=== PATIENT | male | born 1960 | race Caucasian/White ===

== ENCOUNTER → 2016-08-30 | Emergency (ER) | payer BC ==
[~2016-08-30] VITALS: Ht 177.8 cm; Wt 65.8 kg
[~2016-08-30] MED LIST: CATHETER FLUSH 10 ML SYR IV PRN; IOHEXOL 350 MG/ML 100 ML (OMNIPAQUE 350) VIAL IV ONE; NS 100 ML (IVPB) BAG IV ONE; NS IV 1000 ML 1,000 ML IV ONE
--- NOTE | 2016-08-30 09:44 | ED Abdominal Pain ---
General Chief Complaint: Abdominal/GI Problems Stated Complaint: ABD/BACK PAIN/DIARRHEA LIGHTHEADED WEAKNESS Nursing Triage Note: AMB TO ED REPORTS THAT HE HAS HAD ABD PAIN THAT STARTED 4-5 WEEKS STARTED ON R AND MOVES TO R AND L AND BACK. NO VOMITNG. STARTED WITH DIARREA ON TUE. CON'T TO BE ABLE TO EAT AND DRINK. WAS STARTED ON AMOXIL LAST WEEK FOR POSSIBLE STREP. FINISHED YESTERDAY. TODAY TOOK PILL FOR DIARRHEA. DID NOT EAT BREAKFAST. WHILE AT WORK STARTED FEELING LIGHT HEADED. ATE BANANA FEELING BETTER NOW. Sepsis Screen: No Definite Risk Source of Information: Patient Exam Limitations: No Limitations History of Present Illness Time Seen By Provider: 09:27 Initial Comments Here with complaint of 4-5 weeks of intermittent abdominal pain and low back pain. States started on the right side and then moved to the left. It has had various areas along the abdominal wall and low back in that timeframe. Started on Amoxil last week for tonsil problems. He has had loose stools over the last 2 days. He took Imodium yesterday and was a little dizzy afterwards but that cleared with eating. He took it again today and was dizzy afterwards but did not get better after eating. He is a little better now. He is set up for colonoscopy with Dr. Chavira in a week or 2. Denies blood in his stool. Denies dysuria. Denies vomiting. Timing/Duration: 1-3 Hours, Changing Over Time Severity/Quality: Other (loose stools and weakness) Location: Generalized Abdomen Radiation: Back (he is getting swollen sure the) Activities at Onset: None Associated Symptoms: No Back Pain, No Chest Pain, No Fever/Chills, No Nausea/ Vomiting, Weakness Allergies and Home Medications Allergies Coded Allergies: No Known Drug Allergies (Unverified , 01/21/16) Home Medications No Active Prescriptions or Reported Meds Review of Systems Constitutional: see HPI, No chills, No fever EENTM: No Symptoms Reported Respiratory: No Symptoms Reported Cardiovascular: No Symptoms Reported Gastrointestinal: See HPI, Abdominal Pain, Diarrhea, Denies Nausea, Denies Vomiting Genitourinary: No Symptoms Reported Musculoskeletal: see HPI, back pain, No muscle pain Skin: no symptoms reported Psychiatric/Neurological: No Symptoms Reported All Other Systems Reviewed Negative Unless Noted: Yes Past Xntaddj-Kaaczs-Iffmyf Hx Patient Social History Alcohol Use: Occasionally Uses Recreational Drug Use: No Smoking Status: Never a Smoker Recent Foreign Travel: No Contact w/Someone Who Travel: No Recent Infectious Disease Expo: No Recent Hopitalizations: No Immunizations Up To Date Tetanus Booster (TDap): Less than 5yrs PED Vaccines UTD: No Seasonal Allergies Seasonal Allergies: Yes Surgeries HX Surgeries: Yes Surgeries: Cystectomy, Ear Surgery Respiratory Hx Respiratory Disorders: No Cardiovascular Hx Cardiac Disorders: No Neurological Hx Neurological Disorders: No Reproductive System Hx Reproductive Disorders: No Genitourinary Hx Genitourinary Disorders: No Gastrointestinal Hx Gastrointestinal Disorders: No Musculoskeletal Hx Musculoskeletal Disorders: No Musculoskeletal Disorders: Back Injury, Chronic Back Pain Endocrine Hx Endocrine Disorders: No HEENT HX ENT Disorders: No Cancer Hx Cancer: No Psychosocial Hx Psychiatric Problems: No Integumentary HX Skin/Integumentary Disorder: No Blood Transfusions Hx Blood Disorders: No Adverse Reaction to a Blood Tr: No Reviewed Nursing Assessment Reviewed/Agree w Nursing PMH: Yes Family Medical History Significant Family History: CAD Under 55 Years Old Family Medial History: Myocardial infarction 19 FATHER, Onset:40's - 50 Physical Exam Vital Signs VS - Last 72 Hours, by Label 08/30/16 09:34 Temp 98.2 Pulse 82 Resp 18 B/P (MAP) 137/92 Capillary Refill : Less Than 3 Seconds General Appearance: WD/WN, no apparent distress HEENT: PERRL/EOMI, pharynx normal Neck: full range of motion, supple Respiratory: lungs clear, normal breath sounds Cardiovascular: regular rate, rhythm, no murmur Gastrointestinal: non tender, soft Extremities: non-tender, normal inspection Back: normal inspection, no CVA tenderness, no vertebral tenderness Neurologic/Psychiatric: alert, oriented x 3 Skin: normal color, warm/dry Progress/Results/Core Measures Results/Orders Lab Results Laboratory Tests Test 08/30/16 09:56 08/30/16 10:33 Range/Units White Blood Count 7.4 4.3-11.0 10^3/uL Red Blood Count 4.70 4.35-5.85 10^6/uL Hemoglobin 14.5 13.3-17.7 G/DL Hematocrit 43 40-54 % Mean Corpuscular Volume 92 80-99 FL Mean Corpuscular Hemoglobin 31 25-34 PG Mean Corpuscular Hemoglobin Concent 34 32-36 G/DL Red Cell Distribution Width 12.1 10.0-14.5 % Platelet Count 223 130-400 10^3/uL Mean Platelet Volume 8.9 7.4-10.4 FL Neutrophils (%) (Auto) 75 42-75 % Lymphocytes (%) (Auto) 14 12-44 % Monocytes (%) (Auto) 10 0-12 % Eosinophils (%) (Auto) 1 0-10 % Basophils (%) (Auto) 0 0-10 % Neutrophils # (Auto) 5.6 1.8-7.8 X 10^3 Lymphocytes # (Auto) 1.0 1.0-4.0 X 10^3 Monocytes # (Auto) 0.7 0.0-1.0 X 10^3 Eosinophils # (Auto) 0.1 0.0-0.3 10^3/uL Basophils # (Auto) 0.0 0.0-0.1 10^3/uL Sodium Level 139 135-145 MMOL/L Potassium Level 4.3 3.6-5.0 MMOL/L Chloride Level 106 98-107 MMOL/L Carbon Dioxide Level 25 21-32 MMOL/L Anion Gap 8 5-14 MMOL/L Blood Urea Nitrogen 14 7-18 MG/DL Creatinine 1.17 0.60-1.30 MG/DL Estimat Glomerular Filtration Rate > 60 BUN/Creatinine Ratio 12 Glucose Level 105 70-105 MG/DL Calcium Level 9.0 8.5-10.1 MG/DL Magnesium Level 2.3 1.8-2.4 MG/DL Total Bilirubin 0.4 0.1-1.0 MG/DL Aspartate Amino Transf (AST/SGOT) 28 5-34 U/L Alanine Aminotransferase (ALT/SGPT) 35 0-55 U/L Alkaline Phosphatase 37 L 40-136 U/L Total Protein 7.2 6.4-8.2 G/DL Albumin 4.2 3.2-4.5 G/DL Urine Color YELLOW Urine Clarity CLEAR Urine pH 6.5 5-9 Urine Specific [place] 1.005 L 1.016-1.022 Urine Protein NEGATIVE NEGATIVE Urine Glucose (UA) NEGATIVE NEGATIVE Urine Ketones NEGATIVE NEGATIVE Urine Nitrite NEGATIVE NEGATIVE Urine Bilirubin NEGATIVE NEGATIVE Urine Urobilinogen NORMAL NORMAL MG/DL Urine Leukocyte Esterase NEGATIVE NEGATIVE Urine RBC (Auto) NEGATIVE NEGATIVE Urine RBC NONE /HPF Urine WBC RARE /HPF Urine Crystals NONE /LPF Urine Bacteria NEGATIVE /HPF Urine Casts NONE /LPF Urine Mucus NEGATIVE /LPF Urine Culture Indicated NO My Orders Orders - FREDO TREVIZO MD Cbc With Automated Diff (08/30/16 09:27) Comprehensive Metabolic Panel (08/30/16 09:27) Magnesium (08/30/16 09:27) Saline Lock/Iv-Start (08/30/16 09:27) Ns Iv 1000 Ml (Sodium Chloride 0.9%) (08/30/16 09:27) Ua Culture If Indicated (08/30/16 10:28) Ct Abdomen/Pelvis W (08/30/16 10:34) Iohexol Injection (Omnipaque 350 Mg/Ml 1 (08/30/16 10:45) Sodium Chloride Flush (Catheter Flush Sy (08/30/16 10:45) Ns (Ivpb) (Sodium Chloride 0.9% Ivpb Bag (08/30/16 10:45) Medications Given in ED Current Medications Medications Dose Ordered Sig/Iker Route Start Time Stop Time Status Last Admin Dose Admin Iohexol 100 ml ONCE ONCE IV 08/30/16 10:45 08/30/16 10:46 DC 08/30/16 10:49 100 ML Sodium Chloride 100 ml ONCE ONCE IV 08/30/16 10:45 08/30/16 10:46 DC 08/30/16 10:49 80 ML Sodium Chloride 1,000 ml @ 0 mls/hr Q0M ONCE IV 08/30/16 09:27 08/30/16 09:29 DC 08/30/16 10:02 1,000 MLS/HR Vital Signs/I&O Vital Sign - Last 12Hours 08/30/16 09:34 Temp 98.2 Pulse 82 Resp 18 B/P (MAP) 137/92 Blood Pressure Mean: 107 Progress Note : Progress Note Seen and evaluated. IV, labs and UA ordered. CT abdomen and pelvis and dissipated due to vague abdominal pain complaints that have been progressing over the last 5 weeks. Monitor patient. 1140: CT negative. Labs are okay. Prostate enlarged and this was told to the patient. Discharged home with return precautions. Patient verbalized understanding instructions and agreement with plan. Case was discussed with Humphrey Dawn. He would be happy to see him in clinic. Patient will follow-up and make appointment. Diagnostic Imaging Diagonstic Imaging: CT Plain Films/CT/US/NM/MRI: abdomen, pelvis Comments VIA [facility]. [place], [place] NAME: DIPESH HEREDIA [facility] REC#: [id number] PT STATUS: REG ER : 1960 PHYSICIAN: FREDO TREVIZO MD ADMIT DATE: 08/30/16/ER Draft Date of Exam:08/30/16 CT ABDOMEN/PELVIS W PROCEDURE: CT abdomen and pelvis with contrast. TECHNIQUE: Multiple contiguous axial images were obtained through the abdomen and pelvis after administration of intravenous contrast. INDICATION: Abdominal and back pain. Diarrhea. The lung bases appear clear. The liver, the gallbladder, the spleen, the pancreas, and adrenal glands appear unremarkable. The kidneys have symmetric enhancement and contrast excretion. There is no hydronephrosis. The abdominal aorta is normal in caliber. No jose-aortic significantly enlarged lymph nodes seen. The prostate is 5.4 cm in transverse dimension. There are few diverticula seen with no diverticulitis. No significant free fluid or fluid collection in the abdomen or pelvis seen. The appendix is not well seen. There is no significant lymphadenopathy. There is disc height loss with vacuum phenomenon seen at L4/L5 level. Mild degenerative SI joint changes also seen. IMPRESSION: 1. Mild sigmoid diverticulosis. No diverticulitis. 2. Enlarged prostate. Dictated on workstation # [id number] Dict: 08/30/16 1107 Trans: 08/30/16 1117 [facility] [id number] Interpreted by: VIVIANA ANDRADE MD Electronically signed by: Departure Impression Impression: Primary Impression: Abdominal pain, diffuse Additional Impression: Diverticulosis Qualified Codes: K57.90 - Diverticulosis of intestine, part unspecified, without perforation or abscess without bleeding Disposition: 01 HOME, SELF-CARE Condition: Improved Departure-Patient Inst. Decision time for Depature: 11:47 Referrals: ADITYA CHAVIRA,LOCAL PHYSICIAN (PCP) Primary Care Physician HUMPHREY SINGLETON MD Patient Instructions: Acute Abdomen (Belly Pain), Adult (DC), Diverticulosis ( DC) Add. Discharge Instructions: All discharge instructions reviewed with patient and/or family. Voiced understanding. Drink plenty of fluids. Eat a normal diet. Increase fruits and vegetables in your diet. Follow-up with Dr. Singleton as discussed. You can call his office today for appointment. Return for worse pain, fever, vomiting, weakness, breathing problems or other concerns as needed. Keep appointment with Dr. Chavira as well. Scripts No Active Prescriptions or Reported Meds Copy Copies To 1: HUMPHREY SINGLETON MD Copies To 2: ADITYA CHAVIRA TIMOTHY D MD Aug 30, 2016 09:44
[2016-08-30 10:04] LABS: BASOPHILS % (AUTO) 0 % (0-10); EOSINOPHILS # (AUTO) 0.1 10^3/uL (0.0-0.3); EOSINOPHILS % (AUTO) 1 % (0-10); LYMPHOCYTES % (AUTO) 14 % (12-44); MEAN CORPUSCULAR HEMOGLOBIN 31 PG (25-34); MEAN CORPUSCULAR HGB CONC 34 G/DL (32-36); MEAN CORPUSCULAR VOLUME 92 FL (80-99); MEAN PLATELET VOLUME 8.9 FL (7.4-10.4); MONOCYTES # (AUTO) 0.7 X 10^3 (0.0-1.0); MONOCYTES % (AUTO) 10 % (0-12); NEUTROPHILS # (AUTO) 5.6 X 10^3 (1.8-7.8); NEUTROPHILS % (AUTO) 75 % (42-75); PLATELET COUNT 223 10^3/uL (130-400); RED CELL DISTRIBUTION WIDTH 12.1 % (10.0-14.5); WHITE BLOOD COUNT 7.4 10^3/uL (4.3-11.0)
[2016-08-30 10:27] LABS: ALANINE AMINOTRANSFERASE 35 U/L (0-55); ALBUMIN 4.2 G/DL (3.2-4.5); ANION GAP 8 MMOL/L (5-14); ASPARTATE AMINO TRANSFERASE 28 U/L (5-34); BILIRUBIN,TOTAL 0.4 MG/DL (0.1-1.0); BLOOD UREA NITROGEN 14 MG/DL (7-18); BUN/CREATININE RATIO 12; CARBON DIOXIDE 25 MMOL/L (21-32); CHLORIDE 106 MMOL/L (98-107); CREATININE SERUM 1.17 MG/DL (0.60-1.30); GFR ESTIMATED > 60; GLUCOSE 105 MG/DL (70-105); MAGNESIUM 2.3 MG/DL (1.8-2.4); POTASSIUM 4.3 MMOL/L (3.6-5.0); SODIUM 139 MMOL/L (135-145); TOTAL PROTEIN 7.2 G/DL (6.4-8.2)
[2016-08-30 10:42] LABS: BILIRUBIN,URINE NEGATIVE (NEGATIVE); KETONES,URINE NEGATIVE (NEGATIVE); LEUKOCYTE ESTERASE ,URINE NEGATIVE (NEGATIVE); NITRITE,URINE NEGATIVE (NEGATIVE); PH,URINE 6.5 (5-9); PROTEIN,URINE NEGATIVE (NEGATIVE); UROBILINOGEN,URINE NORMAL (NORMAL)
[2016-08-30 10:50] LABS: WBC,URINE RARE /HPF
--- NOTE | 2016-08-30 11:18 | Diagnostic Imaging Report ---
PROCEDURE: CT abdomen and pelvis with contrast. TECHNIQUE: Multiple contiguous axial images were obtained through the abdomen and pelvis after administration of intravenous contrast. INDICATION: Abdominal and back pain. Diarrhea. The lung bases appear clear. The liver, the gallbladder, the spleen, the pancreas, and adrenal glands appear unremarkable. The kidneys have symmetric enhancement and contrast excretion. There is no hydronephrosis. The abdominal aorta is normal in caliber. No jose-aortic significantly enlarged lymph nodes seen. The prostate is 5.4 cm in transverse dimension. There are few diverticula seen with no diverticulitis. No significant free fluid or fluid collection in the abdomen or pelvis seen. The appendix is not well seen. There is no significant lymphadenopathy. There is disc height loss with vacuum phenomenon seen at L4/L5 level. Mild degenerative SI joint changes also seen. IMPRESSION: 1. Mild sigmoid diverticulosis. No diverticulitis. 2. Enlarged prostate. Dictated by: Dictated on workstation # [id number]
[2016-08-30 11:53] VITALS: BP 116/79
== END | disposition home or self-care (01) ==
LOC: EDUNIT# 08:59 → ER 09:04
DX: R10.84 Generalized abdominal pain (principal); K57.30 Diverticulosis of large intestine without perforation or abscess without bleeding; R19.7 Diarrhea, unspecified; N40.0 Benign prostatic hyperplasia without lower urinary tract symptoms
CPT/HCPCS: 36415; 74177; 80053; 81000; 83735; 85025; 96360

== ENCOUNTER 2016-09-08 05:40 | Outpatient (CLI) | payer BC ==
[~2016-09-08] VITALS: Ht 177.8 cm; Wt 65.8 kg
== END 2016-09-08 14:44 ==
LOC: PREOP 05:40
PROVIDERS: ATTEND Surgery
DX: Z01.818 Encounter for other preprocedural examination (principal); Z12.11 Encounter for screening for malignant neoplasm of colon

== ENCOUNTER 2016-09-09 22:10 | Emergency (ER) | payer BC ==
[~2016-09-09] VITALS: Ht 177.8 cm; Wt 65.3 kg
--- NOTE | 2016-09-09 22:27 | ED Syncope ---
General Stated Complaint: SYNCOPAL Source of Information: Patient, EMS Exam Limitations: No Limitations History of Present Illness Time Seen by Provider: 22:27 Initial Comments Patient prepping for a colonoscopy by Dr. Manzano tomorrow, 09/10. Sitting on the commode having diarrhea when became weak, sweaty, and light headed. ? backed out briefly. Had similar episode in past when he was dehydrated. Did have one episode of vomiting just prior to leaving his house via EMS en route here. Was giving Zofran IV and a bolus of NS was started. Timing/Prior Episodes: Remote History Symptoms Prior to Episode: Blurred Vision, Diaphoresis, Lightheadedness, Nausea Precipitating Factors: Activity (as above) Loss of Consciousness: Brief (Seconds) (?) Current Symptoms: Lightheadedness, Pale, Weakness Allergies and Home Medications Allergies Coded Allergies: No Known Drug Allergies (Unverified , 09/08/16) Home Medications No Active Prescriptions or Reported Meds Constitutional: see HPI, diaphoresis, weakness Cardiovascular: syncope (???) Gastrointestinal: see HPI, abdominal pain (cramping), diarrhea, nausea, vomiting Psychiatric/Neurological: See HPI, Weakness All Other Systems Reviewed Negative Unless Noted: Yes (Negative excepted noted.) Past Abvafer-Xzfomy-Ccubli Hx Patient Social History Recent Hopitalizations: Yes (DECEMBER-2015 DEHYDRATION) Immunizations Up To Date Tetanus Booster (TDap): Less than 5yrs PED Vaccines UTD: No Seasonal Allergies Seasonal Allergies: Yes Surgeries HX Surgeries: Yes (GANGLION CYST) Surgeries: Ear Surgery Respiratory Hx Respiratory Disorders: No Cardiovascular Hx Cardiac Disorders: No Neurological Hx Neurological Disorders: No Reproductive System Hx Reproductive Disorders: No Sexually Transmitted Disease: No HIV/AIDS: No Genitourinary Hx Genitourinary Disorders: No Gastrointestinal Hx Gastrointestinal Disorders: No Musculoskeletal Hx Musculoskeletal Disorders: Yes Musculoskeletal Disorders: Back Injury, Chronic Back Pain Endocrine Hx Endocrine Disorders: No HEENT HX ENT Disorders: Yes (READING GLASSES) Loss of Vision: Bilateral Hearing Impairment: Denies Cancer Hx Cancer: No Psychosocial Hx Psychiatric Problems: No Integumentary HX Skin/Integumentary Disorder: No Blood Transfusions Hx Blood Disorders: No Adverse Reaction to a Blood Tr: No Family Medical History Significant Family History: CAD Under 55 Years Old Family Medial History: Myocardial infarction 19 FATHER, Onset:40's - 50 Physical Exam Vital Signs Vital Sign - Last 12Hours 09/09/16 22:10 Temp 97.9 Pulse 99 Resp 16 B/P (MAP) 118/76 Pulse Ox 98 O2 Delivery Room Air Capillary Refill : General Appearance: No Apparent Distress, WD/WN, Thin HEENT: PERRL/EOMI, Normal ENT Inspection, Pharynx Normal Neck: Supple Cardiovascular: Regular Rate, Rhythm Respiratory: No Respiratory Distress Gastrointestinal: No Rebound, No Tenderness Neurologic/Psychiatric: Alert, Oriented x3, No Motor/Sensory Deficits Cranial Nerves: Normal Hearing, Normal Speech, PERRL Coordination/Gait: Normal Gait Motor/Sensory: No Motor Deficit, No Sensory Deficit Skin: Warm/Dry Progress/Results/Core Measures Results/Orders Lab Results Laboratory Tests Test 09/09/16 22:15 Range/Units White Blood Count 16.2 H 4.3-11.0 10^3/uL Red Blood Count 4.77 4.35-5.85 10^6/uL Hemoglobin 14.7 13.3-17.7 G/DL Hematocrit 44 40-54 % Mean Corpuscular Volume 91 80-99 FL Mean Corpuscular Hemoglobin 31 25-34 PG Mean Corpuscular Hemoglobin Concent 34 32-36 G/DL Red Cell Distribution Width 12.0 10.0-14.5 % Platelet Count 278 130-400 10^3/uL Mean Platelet Volume 9.5 7.4-10.4 FL Neutrophils (%) (Auto) 78 H 42-75 % Lymphocytes (%) (Auto) 14 12-44 % Monocytes (%) (Auto) 7 0-12 % Eosinophils (%) (Auto) 1 0-10 % Basophils (%) (Auto) 0 0-10 % Neutrophils # (Auto) 12.7 H 1.8-7.8 X 10^3 Lymphocytes # (Auto) 2.2 1.0-4.0 X 10^3 Monocytes # (Auto) 1.1 H 0.0-1.0 X 10^3 Eosinophils # (Auto) 0.2 0.0-0.3 10^3/uL Basophils # (Auto) 0.0 0.0-0.1 10^3/uL Neutrophils % (Manual) 72 % Lymphocytes % (Manual) 15 % Monocytes % (Manual) 5 % Eosinophils % (Manual) 1 % Basophils % (Manual) 0 % Band Neutrophils 7 % Blood Morphology Comment NORMAL Sodium Level 138 135-145 MMOL/L Potassium Level 3.9 3.6-5.0 MMOL/L Chloride Level 103 98-107 MMOL/L Carbon Dioxide Level 21 21-32 MMOL/L Anion Gap 14 5-14 MMOL/L Blood Urea Nitrogen 14 7-18 MG/DL Creatinine 1.37 H 0.60-1.30 MG/DL Estimat Glomerular Filtration Rate 53 BUN/Creatinine Ratio 10 Glucose Level 180 H 70-105 MG/DL Calcium Level 8.9 8.5-10.1 MG/DL Magnesium Level 2.0 1.8-2.4 MG/DL Total Bilirubin 0.7 0.1-1.0 MG/DL Aspartate Amino Transf (AST/SGOT) 23 5-34 U/L Alanine Aminotransferase (ALT/SGPT) 25 0-55 U/L Alkaline Phosphatase 39 L 40-136 U/L Total Protein 7.2 6.4-8.2 G/DL Albumin 4.3 3.2-4.5 G/DL My Orders Orders - ESPERANZA ASCENCIO DO Cbc With Automated Diff (09/09/16 22:57) Comprehensive Metabolic Panel (09/09/16 22:57) Magnesium (09/09/16 22:57) Orthostatic Vital Signs (09/09/16 22:57) Saline Lock/Iv-Start (09/09/16 22:57) Ns Iv 1000 Ml (Sodium Chloride 0.9%) (09/09/16 22:57) Manual Differential (09/09/16 22:15) Medications Given in ED Current Medications Medications Dose Ordered Sig/Iker Route Start Time Stop Time Status Last Admin Dose Admin Sodium Chloride 1,000 ml @ 0 mls/hr Q0M ONCE IV 09/09/16 22:57 09/09/16 23:11 DC 09/09/16 23:36 999 MLS/HR Vital Signs/I&O Vital Sign - Last 12Hours 09/09/16 09/10/16 22:10 00:18 Temp 97.9 97.9 Pulse 99 77 Resp 16 16 B/P (MAP) 118/76 Pulse Ox 98 96 O2 Delivery Room Air Progress Note : Progress Note Better p/ the 2 liters of NS Departure Impression Impression: Primary Impression: Vasovagal syncope Disposition: 01 HOME, SELF-CARE Condition: Improved Departure-Patient Inst. Decision time for Depature: 00:00 Referrals: ADITYA MANZANO DO Patient Instructions: Syncope (Fainting) (DC) Scripts No Active Prescriptions or Reported Meds ESPERANZA ASCENCIO DO Sep 09, 2016 22:27
[2016-09-09 23:05] LABS: BASOPHILS % (AUTO) 0 % (0-10); EOSINOPHILS # (AUTO) 0.2 10^3/uL (0.0-0.3); EOSINOPHILS % (AUTO) 1 % (0-10); LYMPHOCYTES # (AUTO) 2.2 X 10^3 (1.0-4.0); LYMPHOCYTES % (AUTO) 14 % (12-44); MEAN CORPUSCULAR HEMOGLOBIN 31 PG (25-34); MEAN CORPUSCULAR HGB CONC 34 G/DL (32-36); MEAN CORPUSCULAR VOLUME 91 FL (80-99); MEAN PLATELET VOLUME 9.5 FL (7.4-10.4); MONOCYTES # (AUTO) 1.1 X 10^3 (0.0-1.0); MONOCYTES % (AUTO) 7 % (0-12); NEUTROPHILS # (AUTO) 12.7 X 10^3 (1.8-7.8); NEUTROPHILS % (AUTO) 78 % (42-75); PLATELET COUNT 278 10^3/uL (130-400); RED BLOOD COUNT 4.77 10^6/uL (4.35-5.85); WHITE BLOOD COUNT 16.2 10^3/uL (4.3-11.0)
[2016-09-09] MEDS: NS IV 1000 ML 1,000 ML IV ONE ×2 (23:16→23:36)
[2016-09-09 23:19] LABS: BAND NEUTROPHILS 7 %; BASOPHILS % (MANUAL) 0 %; EOSINOPHILS % (MANUAL) 1 %; LYMPHOCYTES % (MANUAL) 15 %; NEUTROPHILS % (MANUAL) 72 %
[2016-09-09 23:20] LABS: ALBUMIN 4.3 G/DL (3.2-4.5); BILIRUBIN,TOTAL 0.7 MG/DL (0.1-1.0); CALCIUM 8.9 MG/DL (8.5-10.1); CREATININE SERUM 1.37 MG/DL (0.60-1.30); POTASSIUM 3.9 MMOL/L (3.6-5.0); TOTAL PROTEIN 7.2 G/DL (6.4-8.2)
[2016-09-10 00:18] VITALS: BP 117/71
== END 2016-09-10 00:18 | disposition home or self-care (01) ==
LOC: EDUNIT# 22:10 → ER 22:12
DX: R55 Syncope and collapse (principal)
CPT/HCPCS: 36415; 80053; 83735; 85007; 85027; 96360

== ENCOUNTER 2016-09-10 09:23 | Day surgery (SDC) | payer BC ==
[~2016-09-10] VITALS: Ht 177.8 cm; Wt 65.3 kg
[2016-09-10] MEDS ORDERED: NS IV 1000 ML 1,000 ML IV STA (09:30)
[2016-09-10 09:52] VITALS: BP 109/75
[2016-09-10] MEDS ORDERED: PROPOFOL INJECTION 50 ML IV ONE (10:10)
[2016-09-10] MEDS ORDERED: fentaNYL INJECTION 100 MCG/2 ML AMP ONE (10:11)
[2016-09-10] MEDS ORDERED: MIDAZOLAM 2 MG/2 ML (VERSED) VIAL ONE (10:11)
--- NOTE | 2016-09-10 10:14 | Progress Note-Pre Operative ---
Pre-Operative Progress Note H&P Reviewed The H&P was reviewed, patient examined and no changes noted. Date H&P Reviewed: Sep 10, 2016 Time H&P Reviewed: 10:14 Pre-Operative Diagnosis: screening colonoscopy ADITYA CHAVIRA DO Sep 10, 2016 10:14 am
--- NOTE | 2016-09-10 10:46 | Discharge Inst-Simple/Standard ---
Discharge Inst-Standard Patient Instructions/Follow Up Plan of Care/Instructions/FU: Follow up with Dr. Manzano as needed. Follow up with PCP Will need repeat colonoscopy in 10 years or sooner if current conditions changes or recent family history of cancer. Activity as Tolerated: Yes Discharge Diet: No Restrictions DARLENE AUGUSTINE APRN Sep 10, 2016 10:46 am
--- NOTE | 2016-09-10 10:51 | Progress Note-Post Operative ---
Post-Operative Progess Note Surgeon (s)/Breaker Oiler (s) Surgeon ADITYA CHAVIRA DO Breaker Oiler: 0 Pre-Operative Diagnosis screening colonoscopy Post-Operative Diagnosis diverticulosis Post-Op Procedure Note Date of Procedure: Sep 10, 2016 Name of Procedure Performed: colonoscopy Description of the Procedure: see note Findings of the Procedure see note Anesthesia Type per retail office associate Estimated blood loss (mL): none Specimen(s) collected/removed none ADITYA CHAVIRA DO Sep 10, 2016 10:51 am
[2016-09-10 10:55] VITALS: BP 101/69
--- NOTE | 2016-09-10 11:04 | OPERATIVE REPORT ---
DATE OF SERVICE: PREOPERATIVE DIAGNOSIS: Screening colonoscopy. POSTOPERATIVE DIAGNOSIS: Diverticulosis. PROCEDURE: Colonoscopy. SURGEON: Calixto Manzano. ANESTHESIA: Per MDA. BLOOD LOSS: None. COMPLICATIONS: None. INDICATIONS: A 56-year-old male who has not had a colonoscopy at this time. He does not have any family history of colon cancer. He understands the risks and benefits of procedure and wished to proceed with the procedure. Consent was signed in the chart. PROCEDURE: The patient was taken to the endoscopy suite, placed in the left lateral recumbent position. Timeout was performed. Digital rectal exam was performed. There are no palpable polyps, masses or ulceration. The scope was inserted in the rectum and advanced all the way to the cecum with minimal difficulty. Prep was adequate. Scope was slowly retracted back. There are no polyps, masses or ulcerations within the cecum, ascending, transverse, descending and sigmoid colon. The scope was continued to be retracted back to the rectum where it was also retroflexed noting no other pathology. The scope was returned to its normal position. Through the sigmoid portion, there was a minimal amount of diverticulosis present. The scope was then slowly retracted until completely removed. The patient tolerated the procedure well without any complications. He was taken to the recovery room in stable condition. RECOMMENDATIONS: The patient will need repeat colonoscopy in 10 years unless family history of colon cancer at which time it would be in 5 years. If he has any problems prior to that, it should be reevaluated at that time. Job ID: [id number] DocumentID: [id number] Dictated Date: 09/10/2016 10:52:07 [employer]crew Foreman Date: 09/10/2016 11:03:57 Dictated By: DO FORREST GIBSON
[2016-09-10 11:37] VITALS: BP 120/85
[2016-09-10 11:42] VITALS: BP 120/85
== END 2016-09-10 11:51 | disposition home or self-care (01) ==
LOC: ENDO 09:23
PROVIDERS: ATTEND Surgery
DX: Z12.11 Encounter for screening for malignant neoplasm of colon (principal); K57.30 Diverticulosis of large intestine without perforation or abscess without bleeding

== ENCOUNTER 2018-11-09 10:44 | Emergency (ER) | payer BC ==
[~2018-11-09] VITALS: Ht 177.8 cm; Wt 68.0 kg
[2018-11-09 11:29] VITALS: BP_SYST 119; BP_SYST 126; BP_SYST 134; BP_DIAS 78; BP_DIAS 85; BP_DIAS 88
[2018-11-09 11:30] LABS: BASOPHILS % (AUTO) 0 % (0-10); EOSINOPHILS # (AUTO) 0.1 10^3/uL (0.0-0.3); EOSINOPHILS % (AUTO) 2 % (0-10); HEMATOCRIT 43 % (40-54); HEMOGLOBIN 14.5 G/DL (13.3-17.7); LYMPHOCYTES # (AUTO) 1.6 X 10^3 (1.0-4.0); LYMPHOCYTES % (AUTO) 24 % (12-44); MEAN CORPUSCULAR HEMOGLOBIN 31 PG (25-34); MEAN CORPUSCULAR HGB CONC 34 G/DL (32-36); MEAN CORPUSCULAR VOLUME 92 FL (80-99); MEAN PLATELET VOLUME 9.3 FL (7.4-10.4); MONOCYTES # (AUTO) 0.8 X 10^3 (0.0-1.0); MONOCYTES % (AUTO) 12 % (0-12); NEUTROPHILS # (AUTO) 4.1 X 10^3 (1.8-7.8); NEUTROPHILS % (AUTO) 62 % (42-75); PLATELET COUNT 253 10^3/uL (130-400); RED CELL DISTRIBUTION WIDTH 12.1 % (10.0-14.5); WHITE BLOOD COUNT 6.6 10^3/uL (4.3-11.0)
--- NOTE | 2018-11-09 11:32 | ED General ---
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 He began to not feel well primarily with a symptom of lightheadedness and went to his office to rest. During that time he had a sudden onset of palpitations and tachycardia. The tachycardia was very evident to him by placing his hand on his chest. Patient took meclizine (Bonine) which helped his dizziness to some degree but did not seem to improve the intense episode he had later in his office. Patient reports frequently having dizziness associated with lightheadedness and nausea when tilting his head back or moving his head in either direction. He frequently needs to take Dramamine or meclizine for these symptoms. He does see a chiropractor for these symptoms and neck pain issues. However, he is never had palpitations like he experienced today. The episode lasted for an estimated 15 minutes or greater. Associated symptoms included mild headache, mild shortness of air, sweats, tingling of the extremities and a pain on the top of his head. He states all of these symptoms have resolved except for some minimal residual tingling in his legs. Patient denies any history of arrhythmia. He did have a stress test performed in 2016. There was mitral valve prolapse noted, but it was otherwise unremarkable. He had an assessment by Dr. Kumar at that time. Patient denied any chest pain at any time today. Patient is also presently being worked up for sleep apnea. He had a home sleep study that resulted in 51 minutes of hypoxia. He is seen Dr. Sotelo for this. He is not yet on supplemental oxygen due to insurance issues. Dr. Humphrey Singleton is his primary care provider. Allergies and Home Medications Allergies Coded Allergies: No Known Drug Allergies (Unverified , 6/20/19) Home Medications Ondansetron 4 Mg Tab.rapdis, 4 MG SL Q4H PRN for NAUSEA/VOMITING Prescribed by: ABBIE RENTERIA on 11/09/18 1414 Patient Home Medication List Home Medication List Reviewed: Yes Review of Systems Review of Systems Constitutional: see HPI, diaphoresis, other (shakiness) EENTM: no symptoms reported Respiratory: see HPI Cardiovascular: see HPI Gastrointestinal: see HPI Genitourinary: no symptoms reported Musculoskeletal: no symptoms reported Skin: no symptoms reported Psychiatric/Neurological: See HPI Hematologic/Lymphatic: No Symptoms Reported Immunological/Allergic: no symptoms reported Past Ugswupv-Lxruik-Ihhqko Hx Past Med/Social Hx: Reviewed and Corrections made Patient Social History Alcohol Use: Denies Use Number of Drinks Today: AA Alcohol Beverage of Choice: Beer Recreational Drug Use: No 2nd Hand Smoke Exposure: No Recent Foreign Travel: No Contact w/Someone Who Travel: No Recent Infectious Disease Expo: No Recent Hopitalizations: No Physical Abuse: No Sexual Abuse: No Mistreated: No Fear: No Immunizations Up To Date Tetanus Booster (TDap): More than 5yrs PED Vaccines UTD: No Seasonal Allergies Seasonal Allergies: Yes Past Medical History Surgeries: Yes (GANGLION CYST, L EAR) Ear Surgery, Orthopedic (ganglion cyst from right wrist) Respiratory: Yes Sleep Apnea Cardiac: No Neurological: Yes Vertigo Reproductive Disorders: No Sexually Transmitted Disease: No HIV/AIDS: No Gastrointestinal: No Musculoskeletal: Yes Back Injury, Chronic Back Pain Endocrine: No Loss of Vision: Bilateral Hearing Impairment: Denies Cancer: No Psychosocial: Yes Anxiety Integumentary: No Blood Disorders: No Adverse Reaction/Blood Tranf: No Family Medical History Myocardial infarction 19 FATHER, Onset:40's - 50 CAD Under 55 Years Old Physical Exam Vital Signs Vital Signs - First Documented 11/09/18 10:54 Temp 97.2 Pulse 85 Resp 18 B/P (MAP) 152/93 (112) Capillary Refill : Less Than 3 Seconds Height, Weight, BMI Height: 5'10.00" Weight: 150lbs. 0.0oz. 68.787231wh; 20.7 BMI Method:Stated General Appearance: No Apparent Distress, WD/WN, Thin HEENT: PERRL/EOMI, TMs Normal, Normal ENT Inspection, Pharynx Normal Neck: Normal Inspection; No Carotid Bruit, No JVD Respiratory: Lungs Clear, Normal Breath Sounds, No Accessory Muscle Use, No Respiratory Distress Cardiovascular: Regular Rate, Rhythm, No Edema, No Gallop, No Murmur, Normal Peripheral Pulses Gastrointestinal: Non Tender, Soft Extremity: Normal Inspection, No Pedal Edema Neurologic/Psychiatric: Alert, Oriented x3, No Motor/Sensory Deficits, Normal Mood/Affect, flask cleaner II-XII Norm as Tested Skin: Normal Color, Warm/Dry Progress/Results/Core Measures Suspected Sepsis Recent Fever Within 48 Hours: No Infection Criteria Present: None New/Unexplained Altered Menta: No Sepsis Screen: No Definite Risk SIRS Temperature:97.2 Pulse: 85 Respiratory Rate: 18 Laboratory Tests 11/09/18 11:20: White Blood Count 6.6 Blood Pressure 152 /93 Mean: 112 Laboratory Tests 11/09/18 11:20: Creatinine 1.14, INR Comment 1.0, Platelet Count 253, Total Bilirubin 0.5 Results/Orders Lab Results Laboratory Tests Test 11/09/18 11:20 Range/Units White Blood Count 6.6 4.3-11.0 10^3/uL Red Blood Count 4.66 4.35-5.85 10^6/uL Hemoglobin 14.5 13.3-17.7 G/DL Hematocrit 43 40-54 % Mean Corpuscular Volume 92 80-99 FL Mean Corpuscular Hemoglobin 31 25-34 PG Mean Corpuscular Hemoglobin Concent 34 32-36 G/DL Red Cell Distribution Width 12.1 10.0-14.5 % Platelet Count 253 130-400 10^3/uL Mean Platelet Volume 9.3 7.4-10.4 FL Neutrophils (%) (Auto) 62 42-75 % Lymphocytes (%) (Auto) 24 12-44 % Monocytes (%) (Auto) 12 0-12 % Eosinophils (%) (Auto) 2 0-10 % Basophils (%) (Auto) 0 0-10 % Neutrophils # (Auto) 4.1 1.8-7.8 X 10^3 Lymphocytes # (Auto) 1.6 1.0-4.0 X 10^3 Monocytes # (Auto) 0.8 0.0-1.0 X 10^3 Eosinophils # (Auto) 0.1 0.0-0.3 10^3/uL Basophils # (Auto) 0.0 0.0-0.1 10^3/uL Prothrombin Time 13.6 12.2-14.7 SEC INR Comment 1.0 0.8-1.4 Activated Partial Thromboplast Time 26 24-35 SEC Sodium Level 137 135-145 MMOL/L Potassium Level 4.3 3.6-5.0 MMOL/L Chloride Level 102 98-107 MMOL/L Carbon Dioxide Level 26 21-32 MMOL/L Anion Gap 9 5-14 MMOL/L Blood Urea Nitrogen 13 7-18 MG/DL Creatinine 1.14 0.60-1.30 MG/DL Estimat Glomerular Filtration Rate > 60 BUN/Creatinine Ratio 11 Glucose Level 110 H 70-105 MG/DL Calcium Level 9.8 8.5-10.1 MG/DL Corrected Calcium 9.4 8.5-10.1 MG/DL Magnesium Level 2.1 1.8-2.4 MG/DL Total Bilirubin 0.5 0.1-1.0 MG/DL Aspartate Amino Transf (AST/SGOT) 28 5-34 U/L Alanine Aminotransferase (ALT/SGPT) 34 0-55 U/L Alkaline Phosphatase 42 40-136 U/L Myoglobin 60.4 10.0-92.0 NG/ML Troponin I < 0.028 <0.028 NG/ML Total Protein 7.6 6.4-8.2 GM/DL Albumin 4.5 3.2-4.5 GM/DL TSH Martin Testing 3.07 0.35-4.94 UIU/ML My Orders Orders - ABBIE FLAHERTY MD Cbc With Automated Diff (11/09/18 11:11) Magnesium (11/09/18 11:11) Chest 1 View, Ap/Pa Only (11/09/18 11:11) Ekg Tracing (11/09/18 11:11) Cardiac Profile 1 (11/09/18 11:11) Comprehensive Metabolic Panel (11/09/18 11:11) Myoglobin Serum (11/09/18 11:11) Protime With Inr (11/09/18 11:11) Partial Thromboplastin Time (11/09/18 11:11) O2 (11/09/18 11:11) Monitor-Rhythm Ecg Trace Only (11/09/18 11:11) Ed Iv/Invasive Line Start (11/09/18 11:11) Thyroid Analyzer (11/09/18 11:11) Orthostatic Vital Signs (Adult (11/09/18 11:11) Us Carotid Lili Complete [id number] (11/09/18 11:11) Vital Signs/I&O 11/09/18 11/09/18 10:54 11:29 Temp 97.2 Pulse 85 80 82 87 Resp 18 B/P (MAP) 152/93 (112) 126/78 (94) 134/85 (101) 119/88 (98) Capillary Refill : Less Than 3 Seconds Blood Pressure Mean: 112 Progress Note #1: Time: 11:36 Progress Note Patient was seen and examined. Vital signs and rhythm are unremarkable. Orthostatic vital signs were also unremarkable. Workup is being pursued. Patient is relatively asymptomatic at this time. We will obtain labs and carotid ultrasound as part of the workup. Progress Note #2: Progress Note Workup was unremarkable. Patient had no further tachycardia or palpitations. He did have some mild dizziness. A Jayesh-Hallpike was a vaguely positive for symptoms on the right. This was converted into an Tess maneuver. Patient was encouraged to try Tess maneuvers at home. Zofran was prescribed for the nausea. Patient was encouraged to follow-up with his primary care provider and Dr. Kumar for further evaluation. Further cardiac monitoring with a Holter monitor or some other type of monitoring device was discussed. ECG Initial ECG Impression Date: Nov 09, 2018 Initial ECG Impression Time: 11:21 Initial ECG Rate: 71 Initial ECG Rhythm: Normal Sinus Initial ECG Intervals: Normal Comment Normal sinus rhythm with no ST elevation or depression. No abnormal intervals or axis deviation. Diagnostic Imaging Diagonstic Imaging: Xray Plain Films/CT/US/NM/MRI: chest Comments Chest x-ray viewed by me and report reviewed. See report below: NAME: DIPESH HEREDIA [facility] REC#: [id number] PT STATUS: REG ER : 1960 PHYSICIAN: ABBIE FLAHERTY MD ADMIT DATE: 11/09/18/ER Draft Date of Exam:11/09/18 CHEST 1 VIEW, AP/PA ONLY Portable erect AP chest at 12:24. Indication: Tachycardia, tingling in right arm Heart size is within normal limits and stable when compared to 01/21/2016. The lungs are clear. There is no evidence for failure, pneumonia or for pleural effusion. Mediastinum is not widened. The osseous structures are intact. Impression: There is no evidence for an acute cardiopulmonary abnormality. Dictated on workstation # [id number] Dict: 11/09/18 1229 Trans: 11/09/18 1236 CVB [id number] Interpreted by: SOURAV CALDERA MD Diagonstic Imaging: Ultrasound Plain Films/CT/US/NM/MRI: other (bilateral carotid arteries) Comments NAME: DIPESH HEREDIA [facility] REC#: [id number] PT STATUS: DEP ER : 1960 PHYSICIAN: ABBIE FLAHERTY MD ADMIT DATE: 11/09/18/ER Draft Date of Exam:11/09/18 US CAROTID LILI COMPLETE [id number] PROCEDURE: US carotid duplex, bilateral. TECHNIQUE: Multiple real-time grayscale images were obtained over the carotid arteries in various projections, bilaterally. Additional spectral analysis and color Doppler duplex images were also obtained. INDICATION: Presyncope and dizziness. FINDINGS: No significant plaquing is identified in either carotid system. Velocities are normal bilaterally. No velocity elevation or stenosis is seen. Both vertebral arteries show antegrade flow. IMPRESSION: No evidence of a hemodynamically significant stenosis. Parameters based on the consensus panel Green-Scale and Doppler ultrasound criteria published March 2003, Radiology, Volume 229. DOPPLER (peak systolic velocity M/S Right Left CCA .97 1.0 ICA Proximal .39 .47 ICA Mid .63 .60 ICA Distal .56 .47 RATIO .65 .60 ECA .76 .72 VERT .36 .40 Dictated on workstation # [id number] Dict: 11/09/18 1456 Trans: 11/09/18 1500 AI [id number] Interpreted by: JUDSON MAX MD Reviewed: Reviewed by Me, Discussed w/Radiologist Departure Impression Primary Impression: Palpitations Additional Impression: Dizziness Disposition: 01 HOME, SELF-CARE Condition: Improved Departure-Patient Inst. Decision time for Depature: 14:10 Referrals: HUMPHREY SINGLETON MD (PCP) Primary Care Physician Idris KUMAR MD Patient Instructions: Palpitations, Vertigo (a Type of Dizziness) Add. Discharge Instructions: Drink plenty of clear liquids. Follow-up with Dr. Singleton as soon as possible regarding your dizziness and palpitations. Also follow-up with Dr. Kumar as soon as possible. You may need cardiac monitoring to evaluate your heart rhythms. Return to care if symptoms worsen. Return to the ER if you have another episode so that cardiac rhythms can be monitored at that time. You may continue using Bonine (meclizine) for dizziness. For nausea U may use Zofran (ondansetron) as prescribed. All discharge instructions reviewed with patient and/or family. Voiced understanding. Scripts Ondansetron (Ondansetron Odt) 4 Mg Tab.rapdis 4 MG SL Q4H PRN for NAUSEA/VOMITING, #10 TAB Prov: ABBIE FLAHERTY MD 11/09/18 Copy Copies To 1: HUMPHREY SINGLETON MD Copies To 2: Idris KUMAR MD, JOSHUA T MD Nov 09, 2018 11:32
[2018-11-09 11:39] LABS: PROTHROMBIN TIME PATIENT 13.6 SEC (12.2-14.7)
[2018-11-09 11:47] LABS: ALANINE AMINOTRANSFERASE 34 U/L (0-55); ALBUMIN 4.5 GM/DL (3.2-4.5); ALKALINE PHOSPHATASE 42 U/L (40-136); BILIRUBIN,TOTAL 0.5 MG/DL (0.1-1.0); BUN/CREATININE RATIO 11; CALCIUM 9.8 MG/DL (8.5-10.1); CARBON DIOXIDE 26 MMOL/L (21-32); CHLORIDE 102 MMOL/L (98-107); CREATININE SERUM 1.14 MG/DL (0.60-1.30); GFR ESTIMATED > 60; GLUCOSE 110 MG/DL (70-105); MAGNESIUM 2.1 MG/DL (1.8-2.4); POTASSIUM 4.3 MMOL/L (3.6-5.0); SODIUM 137 MMOL/L (135-145); TOTAL PROTEIN 7.6 GM/DL (6.4-8.2)
--- NOTE | 2018-11-09 12:36 | Diagnostic Imaging Report ---
Portable erect AP chest at 12:24. Indication: Tachycardia, tingling in right arm Heart size is within normal limits and stable when compared to 01/21/2016. The lungs are clear. There is no evidence for failure, pneumonia or for pleural effusion. Mediastinum is not widened. The osseous structures are intact. Impression: There is no evidence for an acute cardiopulmonary abnormality. Dictated by: Dictated on workstation # [id number]
[2018-11-09] MEDS ORDERED: ONDA4TAB11 SL (14:14)
[2018-11-09 14:33] VITALS: BP 127/92
--- NOTE | 2018-11-09 15:01 | Diagnostic Imaging Report ---
PROCEDURE: US carotid duplex, bilateral. TECHNIQUE: Multiple real-time grayscale images were obtained over the carotid arteries in various projections, bilaterally. Additional spectral analysis and color Doppler duplex images were also obtained. INDICATION: Presyncope and dizziness. FINDINGS: No significant plaquing is identified in either carotid system. Velocities are normal bilaterally. No velocity elevation or stenosis is seen. Both vertebral arteries show antegrade flow. IMPRESSION: No evidence of a hemodynamically significant stenosis. Parameters based on the consensus panel Green-Scale and Doppler ultrasound criteria published March 2003, Radiology, Volume 229. DOPPLER (peak systolic velocity M/S Right Left CCA .97 1.0 ICA Proximal .39 .47 ICA Mid .63 .60 ICA Distal .56 .47 RATIO .65 .60 ECA .76 .72 VERT .36 .40 Dictated by: Dictated on workstation # [id number]
== END 2018-11-09 14:33 | disposition home or self-care (01) ==
LOC: EDUNIT# 10:44 → ER 10:45
DX: R00.2 Palpitations (principal); R42 Dizziness and giddiness; G47.30 Sleep apnea, unspecified; F41.9 Anxiety disorder, unspecified; Z82.49 Family history of ischemic heart disease and other diseases of the circulatory system; Z98.890 Other specified postprocedural states
CPT/HCPCS: 36415; 71045; 80053; 83735; 83874; 84443; 84484; 85025; 85610; 85730; 93005; 93880

== ENCOUNTER → 2018-12-05 | Outpatient (CLI) | payer BC ==
[~2018-12-05] MED LIST changes: -CATHETER FLUSH 10 ML SYR IV PRN; -IOHEXOL 350 MG/ML 100 ML (OMNIPAQUE 350) VIAL IV ONE; -NS 100 ML (IVPB) BAG IV ONE; -NS IV 1000 ML 1,000 ML IV ONE; +ONDA4TAB11 SL; +RT-ALBUTEROL SULF 2.5 MG/3 ML PRE-MIX VIAL INH ONE
== END ==
LOC: RT 10:30
PROVIDERS: ATTEND Nurse Practitioner Family
DX: J30.9 Allergic rhinitis, unspecified (principal); G47.36 Sleep related hypoventilation in conditions classified elsewhere; G47.10 Hypersomnia, unspecified; G47.50 Parasomnia, unspecified
CPT/HCPCS: 94060; 94640; 94726; 94729

== ENCOUNTER 2021-05-26 21:13 | Emergency (ER) | payer BC ==
[~2021-05-26] VITALS: Ht 178 cm; Wt 66.0 kg
[~2021-05-26 21:13] MED LIST changes: -RT-ALBUTEROL SULF 2.5 MG/3 ML PRE-MIX VIAL INH ONE
--- NOTE | 2021-05-26 21:28 | ED General ---
General Stated Complaint: BACK PAIN Source of Information: Patient Exam Limitations: No Limitations History of Present Illness Date Seen by Provider: May 26, 2021 Time Seen by Provider: 21:23 Initial Comments To ER with left low back pain that radiates around to the left groin. He has a bad back anyways been seeing a chiropractor for this. For the past 2 to 3 days pain is been worse than usual. He has been taking Tylenol [id number]-fmjsdtm and a prescription for Flexeril 5 mg 2 tablets every 12 hours as directed by primary care provider Dr. Humphrey Singleton. Denies any improvement as of yet. Has no other medical problems and takes no other medications. Has been unable to sleep for the past few days because of the pain. 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 Denies any loss of bowel or bladder control, denies any numbness of his genitals, no fever no chills no history of cancer no IV drug use. Pain does not radiate down his leg only to the left groin. Timing/Duration: 1-2 Days Severity: Moderate Associated Systoms: Denies Symptoms Allergies and Home Medications Allergies Coded Allergies: No Known Drug Allergies (Unverified , 11/09/18) Patient Home Medication List Home Medication List Reviewed: Yes Hydrocodone/Acetaminophen (Hydrocodone-Acetamin 5-325 mg) 1 Each Tablet, 1 TAB PO Q4H PRN for PAIN-MODERATE (5-7) Prescribed by: SWETHA LICONA on 05/26/21 2240 Ondansetron (Ondansetron Odt) 4 Mg Tab.rapdis, 4 MG SL Q4H PRN for NAUSEA/VOMITING Prescribed by: ABBIE RENTERIA on 11/09/18 1414 Prednisone (Prednisone) 20 Mg Tab, 40 MG PO DAILY Prescribed by: SWETHA LICONA on 05/26/21 2239 Review of Systems Review of Systems Constitutional: see HPI EENTM: see HPI Respiratory: no symptoms reported Cardiovascular: no symptoms reported Genitourinary: no symptoms reported Musculoskeletal: see HPI Skin: no symptoms reported Psychiatric/Neurological: No Symptoms Reported Hematologic/Lymphatic: No Symptoms Reported Immunological/Allergic: no symptoms reported Past Zxmblov-Rqcrgj-Rdrrin Hx Immunizations Up To Date Tetanus Booster (TDap): More than 5yrs PED Vaccines UTD: No Seasonal Allergies Seasonal Allergies: Yes Past Medical History Surgeries: Yes (GANGLION CYST, L EAR) Ear Surgery, Orthopedic Respiratory: Yes Sleep Apnea Cardiac: No Neurological: Yes Vertigo Reproductive Disorders: No Sexually Transmitted Disease: No HIV/AIDS: No Gastrointestinal: No Musculoskeletal: Yes Back Injury, Chronic Back Pain Endocrine: No Loss of Vision: Bilateral Hearing Impairment: Denies Cancer: No Psychosocial: Yes Anxiety Integumentary: No Blood Disorders: No Adverse Reaction/Blood Tranf: No Family Medical History Myocardial infarction 19 FATHER, Onset:40's - 50 CAD Under 55 Years Old Physical Exam Vital Signs Capillary Refill : Height, Weight, BMI Height: 5'10.00" Weight: 150lbs. 0.0oz. 68.077222qx; 20.7 BMI Method:Stated General Appearance: No Apparent Distress, WD/WN, Thin, Other (He has a TENS unit on the left low back which he reports is not giving him much relief. His pain at 8 out of 10.) Eyes: Bilateral Eye Normal Inspection, Bilateral Eye PERRL, Bilateral Eye EOMI Neck: Full Range of Motion, Normal Inspection Respiratory: No Accessory Muscle Use, No Respiratory Distress Gastrointestinal: Normal Bowel Sounds, Non Tender, Soft Extremity: Normal Capillary Refill, Normal Inspection Neurologic/Psychiatric: Alert, Oriented x3 Skin: Normal Color, Warm/Dry Progress/Results/Core Measures Suspected Sepsis SIRS Temperature: Pulse: Respiratory Rate: Blood Pressure / Mean: Results/Orders My Orders Orders - SWETHA LICONA APRN Ketorolac Injection (Toradol Injection) (05/26/21 21:30) Orphenadrine Inj (Ed Only) (Norflex Inje (05/26/21 21:30) Rx-Hydrocodone/Apap 5-325 Mg (Rx-Vicodin (05/26/21 21:30) Ct Abd/Pelvis Wo(Kidney Stone) (05/26/21 21:28) Medications Given in ED Current Medications Medications Dose Ordered Sig/Iker Route Start Time Stop Time Status Last Admin Dose Admin Acetaminophen/ Hydrocodone Bitart 1 ea Q4H PRN PO 05/26/21 21:30 05/26/21 21:32 1 EA Ketorolac Tromethamine 60 mg ONCE ONCE IM 05/26/21 21:30 05/26/21 21:31 DC 05/26/21 21:31 60 MG Orphenadrine Citrate 60 mg ONCE ONCE IM 05/26/21 21:30 05/26/21 21:31 DC 05/26/21 21:31 60 MG Vital Signs/I&O Capillary Refill : Departure Impression Primary Impression: Low back pain Disposition: HOME, SELF-CARE Condition: Stable Departure-Patient Inst. Decision time for Depature: 22:38 Referrals: HUMPHREY SINGLETON MD (PCP/Family) Primary Care Physician Patient Instructions: Low Back Pain ED Scripts Hydrocodone/Acetaminophen (Hydrocodone-Acetamin 5-325 mg) 1 Each Tablet 1 TAB PO Q4H PRN for PAIN-MODERATE (5-7), #10 TAB Prov: SWETHA LICONA APRN 05/26/21 Prednisone (Prednisone) 20 Mg Tab 40 MG PO DAILY, #8 TAB 0 Refills Prov: SWETHA LICONA APRN 05/26/21 SWETHA LICONA APRN May 26, 2021 21:28
[2021-05-26] MEDS ORDERED: ORPHENADRINE 60 MG/2 ML (NORFLEX) AMP (ED ONLY) IM ONE (21:30)
[2021-05-26] MEDS ORDERED: KETOROLAC 60 MG/2 ML VIAL IM ONE (21:30)
--- NOTE | 2021-05-26 22:38 | Diagnostic Imaging Report ---
Clinical indications: Patient with left flank pain x2 days. No surgical history. Exam: CT exam of the abdomen and pelvis is performed without IV or oral contrast using stone protocol. Coronal and sagittal reformatted images were created. Auto Exposure Controls were utilized during the CT exam to meet ALARA standards for radiation dose reduction. Comparisons: None. Findings: There is minimal atelectasis involving both lung bases. There is lower lumbar spine facet arthropathy. There are degenerative spurs involving the lumbar spine. The liver, spleen, pancreas, gallbladder, and adrenal glands are unremarkable. Phleboliths are seen in the pelvis. There is a subtle 2 mm stone overlying the right side of the bladder posteriorly which is not near the right UVJ. This may represent a passed stone. There are no stones seen in the regions of the ureters. Both kidneys are otherwise unremarkable with no hydronephrosis. Bladder is fluid-filled and is otherwise unremarkable. There is diverticulosis involving the sigmoid colon with no evidence of diverticulitis. Extra abdominal structures are closely adjacent to each other due to low intra-abdominal fat. There is no intestinal obstruction. There is no lymphadenopathy. There is no intra-abdominal free air or free fluid. The appendix is not delineated on this exam and may be surgically absent, or obscured by closely adjacent multiple loops of bowel. Extraabdominal and extrapelvic soft tissue structures are unremarkable. There is a small to moderate amount of stool throughout the colon with the right colon affected the most. IMPRESSION: 1: There is a subtle punctate 2 mm stone within the posterior right side of the bladder which is not near the region of the UPJ. This may represent a passed stone. There are no other urinary tract stones seen. 2: Otherwise, there is no CT evidence of acute abdominal or pelvic process. 3: Diverticulosis with no CT evidence of diverticulitis. Dictated by: Dictated on workstation # [id number]
[2021-05-26] MEDS ORDERED: ACHD5005 PO (22:39)
[2021-05-26] MEDS ORDERED: PRD20T PO (22:39)
[2021-05-26] MEDS ORDERED: ONDANSETRON 4 MG (ZOFRAN) ORAL DISSOLVE TAB PO ONE (23:00)
[2021-05-26 23:04] VITALS: BP 121/82
== END 2021-05-26 23:04 | disposition home or self-care (01) ==
LOC: EDUNIT# 21:13 → ER 21:15
DX: M54.50 Low back pain, unspecified (principal); G89.29 Other chronic pain; G47.30 Sleep apnea, unspecified
CPT/HCPCS: 74176

== ENCOUNTER 2021-06-01 03:48 | Emergency (ER) | payer BC ==
[~2021-06-01] VITALS: Ht 177.8 cm; Wt 65.7 kg
[~2021-06-01 03:48] MED LIST changes: +ACHD5005 PO; +PRD20T PO
[2021-06-01] MEDS ORDERED: morphine INJ 10 MG/ML 1ML (SYR OR VIAL) IVP STA (05:13)
[2021-06-01] MEDS ORDERED: KETOROLAC 30 MG/ML VIAL IVP ONE (05:15)
[2021-06-01 05:31] LABS: POTASSIUM 4.4 MMOL/L (3.6-5.0)
[2021-06-01 05:32] LABS: CALCIUM 9.4 MG/DL (8.5-10.1)
[2021-06-01 05:37] LABS: CREATININE SERUM 1.09 MG/DL (0.60-1.30)
[2021-06-01 05:39] LABS: MAGNESIUM 2.3 MG/DL (1.6-2.4)
--- NOTE | 2021-06-01 07:00 | ED Back Pain ---
General Chief Complaint: Back Problems Stated Complaint: LOW BACK PAIN;NUMBNESS IN FEET Nursing Triage Note: PATIENT STATES HURT HIS BACK AT WORK ABOUT 4 WEEKS AGO ADN HAS BEEN BEING TREATED WITH HYDROCODONE, AND A TENS UNIT. C/O INCREASED PAIN IN BACK AND NUMBNESS IN BILATERAL FEET. Source of Information: Patient Exam Limitations: No Limitations (ABBIE FLAHERTY MD) History of Present Illness Date Seen by Provider: Jun 01, 2021 Time Seen by Provider: 04:58 Initial Comments This is 61-year-old gentleman presents to the emergency room with complaints of lower back pain in the lower lumbar region that radiates down to the left hip and upper thigh. He was seen in this ER 6 days ago and was treated. He was prescribed prednisone and hydrocodone. He has also tried oral muscle relaxers. He has also tried Aleve. None of these therapies have been very helpful. He has difficulty sitting or lying for more than a few minutes at a time. He is rather uncomfortable and reports his pain is 6 or 7 out of 10. Pain feels better with walking. His primary concern tonight is that he has numbness in his distal feet associated with this pain. He also complains of numbness in his fourth and fifth finger on the right and perhaps a very subtle numbness on the left hand. He has been constipated from taking hydrocodone. He denies any neck pain. There has been no trauma contributing to his pain. He has a long standing relationship with his chiropractor, Dr. Sheridan. They have been working on trying to get an MRI ordered for him. He has not yet had imaging. (ABBIE FLAHERTY MD) Allergies and Home Medications Allergies Coded Allergies: No Known Drug Allergies (Unverified , 11/09/18) Patient Home Medication List Home Medication List Reviewed: Yes (ABBIE FLAHERTY MD) Hydrocodone/Acetaminophen (Hydrocodone-Acetamin 5-325 mg) 1 Each Tablet, 1 TAB PO Q4H PRN for PAIN-MODERATE (5-7) Prescribed by: SWETHA LICONA on 05/26/21 2240 Hydrocodone/Acetaminophen (Hydrocodone-Acetamin 5-325 mg) 1 Each Tablet, 1 TAB PO Q6H PRN for PAIN-MODERATE (5-7) Prescribed by: TAISHA GARCIA on 06/01/21 0748 Ondansetron (Ondansetron Odt) 4 Mg Tab.rapdis, 4 MG SL Q4H PRN for NAUSEA/VOMITING Prescribed by: ABBIE RENTERIA on 11/09/18 1414 Prednisone (Prednisone) 20 Mg Tab, 40 MG PO DAILY Prescribed by: SWETHA LICONA on 05/26/21 2239 Review of Systems Constitutional: no symptoms reported EENTM: no symptoms reported Respiratory: no symptoms reported Cardiovascular: no symptoms reported Gastrointestinal: no symptoms reported Genitourinary: no symptoms reported Musculoskeletal: see HPI Skin: no symptoms reported Psychiatric/Neurological: See HPI (ABBIE FLAHERTY MD) Past Rbwwilp-Eubpvm-Yaydze Hx Patient Social History Tobacco Use?: No Use of E-Cig and/or Vaping dev: No Substance use?: No Alcohol Use?: No Pt feels they are or have been: No (ABBIE FLAHERTY MD) Immunizations Up To Date Tetanus Booster (TDap): More than 5yrs PED Vaccines UTD: No Influenza Vaccine Up-to-Date: No; Not Current First/Initial COVID19 Vaccinat: DECLINED (ABBIE FLAHERTY MD) Seasonal Allergies Seasonal Allergies: Yes (ABBIE FLAHERTY MD) Past Medical History Surgeries: Yes (GANGLION CYST, L EAR) Ear Surgery, Orthopedic Respiratory: Yes Sleep Apnea Cardiac: No Neurological: Yes Vertigo Reproductive Disorders: No Sexually Transmitted Disease: No HIV/AIDS: No Gastrointestinal: No Musculoskeletal: Yes Back Injury, Chronic Back Pain Endocrine: No Loss of Vision: Bilateral Hearing Impairment: Denies Cancer: No Psychosocial: Yes Anxiety Integumentary: No Blood Disorders: No Adverse Reaction/Blood Tranf: No (ABBIE FLAHERTY MD) Family Medical History Myocardial infarction 19 FATHER, Onset:40's - 50 CAD Under 55 Years Old (ABBIE FLAHERTY MD) Physical Exam Vital Signs Vital Signs - First Documented 06/01/21 05:07 Pulse 116 Resp 20 B/P (MAP) 122/91 (101) Pulse Ox 98 (TAISHA GARCIA) Vital Signs Capillary Refill : (ABBIE FLAHERTY MD) Height, Weight, BMI Height: 5'10.00" Weight: 150lbs. 0.0oz. [id number]; 20.00 BMI Method:Stated General Appearance: WD/WN, Mild Distress, Thin HEENT: PERRL/EOMI, Normal ENT Inspection, Pharynx Normal Neck: Normal Inspection, Carotid Bruit Cardiovascular: Regular Rate, Rhythm, No Edema, No Murmur Respiratory: Lungs Clear, Normal Breath Sounds, No Accessory Muscle Use, No Respiratory Distress Gastrointestinal: Normal Bowel Sounds, Non Tender, Soft Back: Other (Minimal tenderness in the paraspinous region of the left lower lumbar back) Extremity: Normal Inspection, Non Tender, No Pedal Edema Neurologic/Psychiatric: Alert, Oriented x3, No Motor/Sensory Deficits, faro dealer II- XII Norm as Tested Skin: Normal Color, Warm/Dry (ABBIE FLAHERTY MD) Progress/Results/Core Measures Results/Orders Lab Results Laboratory Tests Test 06/01/21 05:15 Range/Units Sodium Level 139 135-145 MMOL/L Potassium Level 4.4 3.6-5.0 MMOL/L Chloride Level 103 98-107 MMOL/L Carbon Dioxide Level 26 21-32 MMOL/L Anion Gap 10 5-14 MMOL/L Blood Urea Nitrogen 13 7-18 MG/DL Creatinine 1.09 0.60-1.30 MG/DL Estimat Glomerular Filtration Rate 68 BUN/Creatinine Ratio 12 Glucose Level 112 H 70-105 MG/DL Calcium Level 9.4 8.5-10.1 MG/DL Magnesium Level 2.3 1.6-2.4 MG/DL C-Reactive Protein High Sensitivity 0.08 0.00-0.50 MG/DL (TAISHA GARCIA) Medications Given in ED Current Medications Medications Dose Ordered Sig/Iker Route Start Time Stop Time Status Last Admin Dose Admin Ketorolac Tromethamine 30 mg ONCE ONCE IVP 06/01/21 05:15 06/01/21 05:16 DC 06/01/21 05:40 30 MG (TAISHA GARCIA) Vital Signs/I&O 06/01/21 05:07 Pulse 116 Resp 20 B/P (MAP) 122/91 (101) Pulse Ox 98 (TAISHA GARCIA) Blood Pressure Mean: 101 Progress Progress Note : Time: 07:01 Progress Note Consideration is being given to spinal imaging. Dr. Garcia is providing a second opinion and will direct care from here. Patient was treated with Toradol and morphine for pain. (ABBIE FLAHERTY MD) Progress Note : Time: 07:45 Progress Note Assumed care of the patient at shift change. I agree with above documented history and physical exam. Patient does not have any detectable sensory or motor neurologic deficits in either lower extremity. Since receiving the morphine his pain is under control. He is not having any paresthesias in his feet or in his hands right now. He has had an MRI in the past at outside facility of his low back. He does not have any emergent need for MRI today. He may benefit from high-resolution imaging of his back because of his advancing symptoms on outpatient basis. We will recommend him back to his primary care provider for evaluation for imaging. He is currently following with a chiropractor. Patient states he received muscle relaxants which did nothing for him. He also did a course of steroids last week which she did not feel helped much. (TAISHA GARCIA) Departure Impression Primary Impression: Lumbago Qualified Codes: M54.42 - Lumbago with sciatica, left side Disposition: 01 HOME, SELF-CARE Condition: Stable Departure-Patient Inst. Decision time for Depature: 07:46 (TAISHA GARCIA) Referrals: TANIA SINGLETON MD (PCP/Family) Primary Care Physician Patient Instructions: Low Back Pain (DC), Opioids for Short-Term Treatment of Pain Add. Discharge Instructions: Hydrocodone 1 tablet every 6 hours necessary for severe breakthrough pain. Reviewed the low back exercise handout. Take a week off from work and do not lift more than 20 pounds. Follow-up with chiropractor and follow-up with your primary care doctor to discuss whether high resolution MRI imaging would be helpful for diagnosing your back pain All discharge instructions reviewed with patient and/or family. Voiced understa nding. Scripts Hydrocodone/Acetaminophen (Hydrocodone-Acetamin 5-325 mg) 1 Each Tablet 1 TAB PO Q6H PRN for PAIN-MODERATE (5-7), #18 TAB 0 Refills Prov: TAISHA GARCIA 06/01/21 Copy Copies To 1: TANIA SINGLETON MD, JOSHUA T MD Jun 01, 2021 07:00 TAISHA GARCIA Jun 01, 2021 07:48
[2021-06-01] MEDS ORDERED: ACHD5005 PO (07:48)
[2021-06-01 07:57] VITALS: BP 133/74
== END 2021-06-01 07:57 | disposition home or self-care (01) ==
LOC: EDUNIT# 03:48 → ER 03:51
DX: M54.42 Lumbago with sciatica, left side (principal); Z79.52 Long term (current) use of systemic steroids; Z79.891 Long term (current) use of opiate analgesic
CPT/HCPCS: 36415; 80048; 83735; 86141

== ENCOUNTER → 2021-06-05 | Outpatient (CLI) | payer BC ==
[~2021-06-05] MED LIST changes: +ONDA4TAB11 PO; +TRAM-42 PO
--- NOTE | 2021-06-05 10:42 | Diagnostic Imaging Report ---
PROCEDURE: MRI lumbar spine. TECHNIQUE: Multiplanar, multisequence MRI of the lumbar spine was performed without contrast. INDICATION: Chronic low back pain. COMPARISON: None. FINDINGS: Normal alignment. Vertebral body heights preserved. No suspicious bone marrow signal. No abnormal signal in the conus which terminates at L1. Normal morphology of the cauda equina. L1-L2: No spinal canal, lateral recess or neural foraminal narrowing. L2-L3: Mild annular disc bulging and ligamentous hypertrophy. Mild left lateral recess narrowing. No spinal canal or neural foraminal narrowing. L3-L4: Annular disc bulge, facet arthropathy and ligamentous hypertrophy results in moderate left lateral recess narrowing. Mild spinal canal narrowing. Moderate to severe left and mild right neural foraminal narrowing. L4-L5: Annular disc bulging results in moderate left and mild right lateral recess narrowing. Mild spinal canal narrowing. Moderate to severe bilateral neural foraminal narrowing. L5-S1: Central disc protrusion results in no substantial spinal canal or lateral recess narrowing. Disc space height loss contributes to mild bilateral neural foraminal narrowing. IMPRESSION: 1. Spondylotic changes result in multilevel high-grade lateral recess and neural foraminal narrowing as above. 2. No high-grade spinal canal stenosis. 3. No acute osseous findings. Dictated by: Dictated on workstation # [id number]
== END ==
LOC: RAD 10:15
PROVIDERS: ATTEND Chiropractor
DX: M51.37 Other intervertebral disc degeneration, lumbosacral region (principal); M48.07 Spinal stenosis, lumbosacral region; M51.27 Other intervertebral disc displacement, lumbosacral region; M47.816 Spondylosis without myelopathy or radiculopathy, lumbar region
CPT/HCPCS: 72148

== ENCOUNTER 2021-06-08 09:27 | Emergency (ER) | payer BC ==
[~2021-06-08] VITALS: Ht 177 cm; Wt 65.7 kg
[~2021-06-08 09:27] MED LIST changes: -ONDA4TAB11 PO; -TRAM-42 PO
[2021-06-08] MEDS ORDERED: morphine INJ 10 MG/ML 1ML (SYR OR VIAL) IVP STA (10:14)
[2021-06-08 10:32] LABS: BASOPHILS % (AUTO) 0 % (0-10); EOSINOPHILS % (AUTO) 0 % (0-10); HEMATOCRIT 45 % (40-54); HEMOGLOBIN 15.1 g/dL (13.3-17.7); LYMPHOCYTES # (AUTO) 1.2 10^3/uL (1.0-4.0); LYMPHOCYTES % (AUTO) 11 % (12-44); MEAN CORPUSCULAR HEMOGLOBIN 31 pg (25-34); MEAN CORPUSCULAR HGB CONC 34 g/dL (32-36); MEAN CORPUSCULAR VOLUME 91 fL (80-99); MEAN PLATELET VOLUME 8.9 fL (9.0-12.2); MONOCYTES # (AUTO) 0.7 10^3/uL (0.0-1.0); MONOCYTES % (AUTO) 6 % (0-12); NEUTROPHILS # (AUTO) 8.7 10^3/uL (1.8-7.8); NEUTROPHILS % (AUTO) 82 % (42-75); PLATELET COUNT 247 10^3/uL (130-400); WHITE BLOOD COUNT 10.6 10^3/uL (4.3-11.0)
--- NOTE | 2021-06-08 10:41 | ED General ---
General Chief Complaint: Abdominal/GI Problems Stated Complaint: BACK PAIN,CHILLS,N/V Nursing Triage Note: pt presents to ed with complaints of sever back pain x 2 weeks in which he has been seen in the ed and by his chiropracter several times. pt reports this am around 0500 he woke up the n/v and chills. pt unsure if he could be with drawing off of hydrocodones whe he ran out tuesday. Source of Information: Patient Exam Limitations: No Limitations History of Present Illness Date Seen by Provider: Jun 08, 2021 Time Seen by Provider: 09:45 Initial Comments This 61-year-old gentleman presents to the emergency room with complaints of chills, nausea and vomiting, numbness in the left inguinal region, back pain, and suprapubic discomfort. He has been under work-up for the back pain and recently had MRI demonstrating multiple levels of disc disease with neuroforaminal involvement. There was no major central spinal stenosis. Care is being directed by his PCP, Dr. Humphrey Singleton, and his chiropractor, Dr. Sheridan. He took his last hydrocodone around 2100. He woke with these symptoms around 0500. He is wondering if his symptoms are related to opioid withdraw. He denies any fever or respiratory symptoms. He is afebrile at present. He reports constipation and slow urine stream. Allergies and Home Medications Allergies Coded Allergies: No Known Drug Allergies (Unverified , 11/09/18) Patient Home Medication List Home Medication List Reviewed: Yes Hydrocodone/Acetaminophen (Hydrocodone-Acetamin 5-325 mg) 1 Each Tablet, 1 TAB PO Q4H PRN for PAIN-MODERATE (5-7) Prescribed by: SWETHA LICONA on 05/26/21 2240 Hydrocodone/Acetaminophen (Hydrocodone-Acetamin 5-325 mg) 1 Each Tablet, 1 TAB PO Q6H PRN for PAIN-MODERATE (5-7) Prescribed by: TAISHA KAPLAN on 06/01/21 0748 Ondansetron (Ondansetron Odt) 4 Mg Tab.rapdis, 4 MG SL Q4H PRN for NAUSEA/VOMITING Prescribed by: ABBIE RENTERIA on 11/09/18 1414 Ondansetron (Ondansetron Odt) 4 Mg Tab.rapdis, 4 MG PO Q4H PRN for NAUSEA/VOMITING Prescribed by: ABBIE RENTERIA on 06/08/21 1147 Prednisone (Prednisone) 20 Mg Tab, 40 MG PO DAILY Prescribed by: SWETHA LICONA on 05/26/21 2239 Tramadol HCl (Ultram) 50 Mg Tablet, 50 MG PO Q6H PRN for PAIN-BREAKTHROUGH Prescribed by: ABBIE RENTERIA on 06/08/21 1148 Review of Systems Review of Systems Constitutional: see HPI, chills EENTM: no symptoms reported Respiratory: no symptoms reported Cardiovascular: no symptoms reported Gastrointestinal: see HPI Genitourinary: no symptoms reported Musculoskeletal: see HPI Skin: no symptoms reported Psychiatric/Neurological: See HPI Hematologic/Lymphatic: No Symptoms Reported Immunological/Allergic: no symptoms reported Past Nmsygbf-Elyaqi-Aqdzwg Hx Patient Social History Tobacco Use?: No Substance use?: No Alcohol Use?: Yes Alcohol Frequency: Rarely Pt feels they are or have been: No Immunizations Up To Date Tetanus Booster (TDap): More than 5yrs PED Vaccines UTD: No First/Initial COVID19 Vaccinat: DECLINED Second COVID19 Vaccination Shane: DECLINED Third COVID19 Vaccination Date: DECLINED Seasonal Allergies Seasonal Allergies: Yes Past Medical History Surgery/Hospitalization HX: pmh: anxiety and ibs Surgeries: Yes (GANGLION CYST, L EAR) Ear Surgery, Orthopedic Respiratory: Yes Sleep Apnea Cardiac: No Neurological: Yes Vertigo Reproductive Disorders: No Sexually Transmitted Disease: No HIV/AIDS: No Gastrointestinal: No Musculoskeletal: Yes (Multilevel disc disease with neuroforaminal stenosis) Back Injury, Chronic Back Pain Endocrine: No HEENT: No Loss of Vision: Bilateral Hearing Impairment: Denies Cancer: No Psychosocial: Yes (Lumbar radiculopathy) Anxiety Integumentary: No Blood Disorders: No Adverse Reaction/Blood Tranf: No Family Medical History Myocardial infarction 19 FATHER, Onset:40's - 50 CAD Under 55 Years Old Physical Exam Vital Signs Vital Signs - First Documented 06/08/21 10:02 Temp 35.8 Pulse 117 Resp 18 B/P (MAP) 148/102 (117) Pulse Ox 100 Capillary Refill : Less Than 3 Seconds Height, Weight, BMI Height: 5'10.00" Weight: 150lbs. 0.0oz. [id number]; 20.00 BMI Method:Stated General Appearance: No Apparent Distress, WD/WN, Thin HEENT: PERRL/EOMI, Normal ENT Inspection Neck: Normal Inspection Respiratory: Lungs Clear, Normal Breath Sounds, No Accessory Muscle Use Cardiovascular: Regular Rate, Rhythm, No Edema, No Murmur Gastrointestinal: Normal Bowel Sounds, Soft, Tenderness (Mild in the suprapubic region) Extremity: Normal Inspection, No Pedal Edema Neurologic/Psychiatric: Alert, Oriented x3, No Motor/Sensory Deficits, Normal Mood/Affect, meteorologist liaison II-XII Norm as Tested Skin: Normal Color, Warm/Dry Progress/Results/Core Measures Suspected Sepsis SIRS Temperature: Pulse: 117 Respiratory Rate: 18 Laboratory Tests 06/08/21 10:19: White Blood Count 10.6 Blood Pressure 148 /102 Mean: 117 Laboratory Tests 06/08/21 10:19: Creatinine 1.07, Platelet Count 247, Total Bilirubin 0.5 Results/Orders Lab Results Laboratory Tests Test 06/08/21 10:19 06/08/21 10:50 Range/Units White Blood Count 10.6 4.3-11.0 10^3/uL Red Blood Count 4.88 4.30-5.52 10^6/uL Hemoglobin 15.1 13.3-17.7 g/dL Hematocrit 45 40-54 % Mean Corpuscular Volume 91 80-99 fL Mean Corpuscular Hemoglobin 31 25-34 pg Mean Corpuscular Hemoglobin Concent 34 32-36 g/dL Red Cell Distribution Width 11.3 10.0-14.5 % Platelet Count 247 130-400 10^3/uL Mean Platelet Volume 8.9 L 9.0-12.2 fL Immature Granulocyte % (Auto) 1 % Neutrophils (%) (Auto) 82 H 42-75 % Lymphocytes (%) (Auto) 11 L 12-44 % Monocytes (%) (Auto) 6 0-12 % Eosinophils (%) (Auto) 0 0-10 % Basophils (%) (Auto) 0 0-10 % Neutrophils # (Auto) 8.7 H 1.8-7.8 10^3/uL Lymphocytes # (Auto) 1.2 1.0-4.0 10^3/uL Monocytes # (Auto) 0.7 0.0-1.0 10^3/uL Eosinophils # (Auto) 0.0 0.0-0.3 10^3/uL Basophils # (Auto) 0.0 0.0-0.1 10^3/uL Immature Granulocyte # (Auto) 0.1 0.0-0.1 10^3/uL Sodium Level 134 L 135-145 MMOL/L Potassium Level 4.2 3.6-5.0 MMOL/L Chloride Level 101 98-107 MMOL/L Carbon Dioxide Level 23 21-32 MMOL/L Anion Gap 10 5-14 MMOL/L Blood Urea Nitrogen 13 7-18 MG/DL Creatinine 1.07 0.60-1.30 MG/DL Estimat Glomerular Filtration Rate 78 BUN/Creatinine Ratio 12 Glucose Level 131 H 70-105 MG/DL Calcium Level 9.7 8.5-10.1 MG/DL Corrected Calcium 9.5 8.5-10.1 MG/DL Total Bilirubin 0.5 0.1-1.0 MG/DL Aspartate Amino Transf (AST/SGOT) 16 5-34 U/L Alanine Aminotransferase (ALT/SGPT) 24 0-55 U/L Alkaline Phosphatase 45 40-136 U/L C-Reactive Protein High Sensitivity 0.08 0.00-0.50 MG/DL Total Protein 7.5 6.4-8.2 GM/DL Albumin 4.3 3.2-4.5 GM/DL Urine Color YELLOW Urine Clarity CLEAR Urine pH 7.0 5-9 Urine Specific Adams 1.020 1.016-1.022 Urine Protein TRACE H NEGATIVE Urine Glucose (UA) NEGATIVE NEGATIVE Urine Ketones NEGATIVE NEGATIVE Urine Nitrite NEGATIVE NEGATIVE Urine Bilirubin NEGATIVE NEGATIVE Urine Urobilinogen 0.2 < = 1.0 MG/DL Urine Leukocyte Esterase NEGATIVE NEGATIVE Urine RBC (Auto) NEGATIVE NEGATIVE Urine RBC 0-2 /HPF Urine WBC 0-2 /HPF Urine Squamous Epithelial Cells RARE /HPF Urine Crystals NONE /LPF Urine Bacteria NEGATIVE /HPF Urine Casts NONE /LPF Urine Mucus SMALL H /LPF Urine Culture Indicated NO My Orders Orders - ABBIE FLAHERTY MD Cbc With Automated Diff (06/08/21 10:14) Comprehensive Metabolic Panel (06/08/21 10:14) Hs C Reactive Protein (06/08/21 10:14) Ua Culture If Indicated (06/08/21 10:14) Ed Iv/Invasive Line Start (06/08/21 10:14) Morphine Injection (Morphine Injection (06/08/21 10:14) Ondansetron Injection (Zofran Injectio (06/08/21 11:15) Tramadol Tablet (Ultram Tablet) (06/08/21 11:30) Ondansetron Injection (Zofran Injectio (06/08/21 11:30) Medications Given in ED Current Medications Medications Dose Ordered Sig/Iker Route Start Time Stop Time Status Last Admin Dose Admin Ondansetron HCl 4 mg ONCE ONCE IVP 06/08/21 11:30 06/08/21 11:31 DC 06/08/21 11:52 4 MG Tramadol HCl 50 mg ONCE ONCE PO 06/08/21 11:30 06/08/21 11:31 DC 06/08/21 11:53 50 MG Vital Signs/I&O 06/08/21 06/08/21 10:02 11:58 Temp 35.8 35.8 Pulse 117 100 Resp 18 18 B/P (MAP) 148/102 (117) 140/92 Pulse Ox 100 100 Capillary Refill : Less Than 3 Seconds Blood Pressure Mean: 117 Progress Note #1: Progress Note Morphine 4 mg is being given as a trial to determine if his symptoms are resolved after opioid therapy. A post void bladder scan is being obtained along with urinalysis. Basic labs are also being obtained. Progress Note #2: Progress Note Labs are unremarkable. Morphine improved his symptoms with the exception of some residual nausea. I discussed the case with Dr. ALTMAN who will make a rrangements to see him in follow-up. Departure Impression Primary Impression: Neuroforaminal stenosis of lumbar spine Disposition: HOME, SELF-CARE Condition: Improved Departure-Patient Inst. Decision time for Depature: 11:40 Referrals: HUMPHREY SINGLETON MD (PCP/Family) Primary Care Physician Patient Instructions: Low Back Pain ED, Radiculopathy Add. Discharge Instructions: You may use Tylenol (acetaminophen) up to 1000 mg every 6 hours as needed for primary pain control. For secondary pain control add an NSAID medications such as naproxen (Aleve) up to 500 mg twice a day or ibuprofen up to 600 mg every 6 hours as needed. For third line pain control add Ultram (tramadol) as prescribed. Please be advised this may make you drowsy and can cause some constipation. You may wish to use a stool softener while on Ultram to prevent constipation. Do not drive or use machinery while on this medication. Follow-up with your primary care provider and chiropractor as soon as possible for referral to a spine surgeon. You may receive a call from the ER if we are able to make a contact for you. Call with questions or concerns. Return to the ER if you have worsening symptoms, especially if you develop numbness of the genital or groin region, weakness in the legs, or difficulty controlling your bowels or bladder. All discharge instructions reviewed with patient and/or family. Voiced understanding. Scripts Ondansetron (Ondansetron Odt) 4 Mg Tab.rapdis 4 MG PO Q4H PRN for NAUSEA/VOMITING, #10 TAB 1 Refill Prov: ABBIE FLAHERTY MD 06/08/21 Tramadol HCl (Ultram) 50 Mg Tablet 50 MG PO Q6H PRN for PAIN-BREAKTHROUGH, #30 TAB Prov: ABBIE FLAHERTY MD 06/08/21 Copy Copies To 1: NOLA ALTMAN MD Copies To 2: HUMPHREY SINGLETON MD, JOSHUA T MD Jun 08, 2021 10:41
[2021-06-08 10:54] LABS: ALBUMIN 4.3 GM/DL (3.2-4.5); POTASSIUM 4.2 MMOL/L (3.6-5.0)
[2021-06-08 10:55] LABS: BILIRUBIN,URINE NEGATIVE (NEGATIVE); CLARITY,URINE CLEAR; COLOR,URINE YELLOW; GLUCOSE, URINE (UA) NEGATIVE (NEGATIVE); KETONES,URINE NEGATIVE (NEGATIVE); LEUKOCYTE ESTERASE ,URINE NEGATIVE (NEGATIVE); NITRITE,URINE NEGATIVE (NEGATIVE); PROTEIN,URINE TRACE (NEGATIVE)
[2021-06-08 10:56] LABS: CALCIUM 9.7 MG/DL (8.5-10.1)
[2021-06-08 10:57] LABS: TOTAL PROTEIN 7.5 GM/DL (6.4-8.2)
[2021-06-08 10:59] LABS: BILIRUBIN,TOTAL 0.5 MG/DL (0.1-1.0)
[2021-06-08 11:01] LABS: CREATININE SERUM 1.07 MG/DL (0.60-1.30)
[2021-06-08 11:05] LABS: BACTERIA,URINE NEGATIVE /HPF; RBC,URINE 0-2 /HPF; SQUAMOUS EPITHELIAL CELL,UR RARE /HPF; WBC,URINE 0-2 /HPF
[2021-06-08] MEDS ORDERED: ONDANSETRON 4 MG/2 ML (SDV) Z0FRAN ONE (11:15)
[2021-06-08] MEDS ORDERED: ONDANSETRON 4 MG/2 ML (SDV) Z0FRAN IVP ONE (11:30)
[2021-06-08] MEDS ORDERED: ONDA4TAB11 PO (11:47)
[2021-06-08] MEDS ORDERED: TRAM-42 PO (11:47)
[2021-06-08 11:58] VITALS: BP 140/92
== END 2021-06-08 11:57 | disposition home or self-care (01) ==
LOC: EDUNIT# 09:27 → ER 09:28
DX: M48.061 Spinal stenosis, lumbar region without neurogenic claudication (principal); G89.29 Other chronic pain; M54.9 Dorsalgia, unspecified; Z79.891 Long term (current) use of opiate analgesic
CPT/HCPCS: 36415; 80053; 81000; 85025; 86141; 96374; 96375

== ENCOUNTER 2021-06-19 13:04 | Outpatient (RCR) | payer BC ==
[~2021-06-19 13:04] MED LIST changes: +ONDA4TAB11 PO; +TRAM-42 PO
== END 2021-06-22 | disposition home or self-care (01) ==
PROVIDERS: ATTEND Pain Medicine Interventional Pain Medicine
DX: M51.16 Intervertebral disc disorders with radiculopathy, lumbar region (principal)

== ENCOUNTER → 2021-07-20 | Outpatient (RCR) | payer BC | END | disposition home or self-care (01) | PROVIDERS: ATTEND Pain Medicine Interventional Pain Medicine | DX: M51.16 Intervertebral disc disorders with radiculopathy, lumbar region (principal) ==

== ENCOUNTER 2021-07-22 08:04 | Outpatient (RCR) | payer BC | END 2021-08-20 | disposition home or self-care (01) | PROVIDERS: ATTEND Pain Medicine Interventional Pain Medicine | DX: M51.16 Intervertebral disc disorders with radiculopathy, lumbar region (principal) ==